=== PATIENT | male | born 1975 | race Caucasian/White ===

== ENCOUNTER 2019-12-10 09:31 | Emergency (ER) | payer BC, OTHER ==
[~2019-12-10] VITALS: Ht 177.8 cm; Wt 72.7 kg
--- NOTE | 2019-12-10 09:45 | ED Integumentary General ---
General Stated Complaint: L FINGER LACERATION History of Present Illness Date Seen by Provider: Dec 10, 2019 Time Seen by Provider: 09:44 Initial Comments 44-year-old male presents following a reptile bite by a ana luisa hernández. Patient reports that recently obtained a Reggie and he wanted to handle it prior to his children handle it. That it bit him on the distal aspect of left index finger. He has 2 small lacerations that the nail bed but not in the nailbed. There is some mild bleeding. He is not up-to-date on his tetanus. He reports no other injuries. Allergies and Home Medications Allergies Coded Allergies: shellfish derived (Verified Allergy, Unknown, 10/17/16) Home Medications No Active Prescriptions or Reported Meds Patient Home Medication List Home Medication List Reviewed: Yes Review of Systems Review of Systems Constitutional: no symptoms reported Gastrointestinal: no symptoms reported Skin: see HPI Past Lvjppjp-Jlfdlv-Izydct Hx Past Med/Social Hx: Reviewed Nursing Past Med/Soc Hx Patient Social History Recent Foreign Travel: No Contact w/Someone Who Travel: No Recent Hopitalizations: No Immunizations Up To Date Tetanus Booster (TDap): Less than 5yrs Seasonal Allergies Seasonal Allergies: Yes Past Medical History Reproductive Disorders: No Sexually Transmitted Disease: No Physical Exam Vital Signs Capillary Refill : General Appearance: WD/WN, no apparent distress Cardiovascular: normal peripheral pulses, regular rate, rhythm Respiratory: chest non-tender, lungs clear Extremities: normal range of motion, non-tender Skin: other (2 very small lacerations on each side of the nailbed on the left index finger. They're nonsuturable.) Procedures/Interventions Suture Size: 5-0 Progress/Results/Core Measures Results/Orders My Orders Orders - LIMON,GRIS L DO Dipht,Pertuss(Acell),Tet Adult (Boostrix (12/10/19 10:00) Progress Progress Note : Time: 09:53 Progress Note Patient's lacerations are minimal and did not require sutures. However we will place Steri-Strips over them. Due to the risk of infection we will not use skin adhesive. He will also be placed on Augmentin prophylactically due to the nature of the bite. Patient should follow-up with her primary care provider as needed. He should keep the wound clean with warm soapy water. Patient is stable and will be discharged home. Departure Impression Primary Impression: Reptile bites Qualified Codes: W59.81XA - Bitten by other nonvenomous reptiles, initial encounter Disposition: 01 HOME, SELF-CARE Condition: Stable Departure-Patient Inst. Referrals: NO,LOCAL PHYSICIAN (PCP/Family) Primary Care Physician Patient Instructions: Animal Bites (DC) Scripts Amoxicillin/Potassium Clav (Augmentin 875-125 Tablet) 1 Each Tablet 1 EACH PO BID, #14 TAB 0 Refills Prov: GRSI LIMON DO 12/10/19 GRIS LIMON DO Dec 10, 2019 09:45
[2019-12-10] MEDS ORDERED: AMOX-358 PO (09:57)
[2019-12-10] MEDS ORDERED: TETANUS,DIPTH,PERTUSS P/F (BOOSTRIX) 0.5 ML VIAL IM ONE (10:00)
[2019-12-10 10:10] VITALS: BP 130/84
== END 2019-12-10 10:10 | disposition home or self-care (01) ==
LOC: EDUNIT# 09:31 → ER 09:32
DX: S61.251A Open bite of left index finger without damage to nail, initial encounter (principal); S61.211A Laceration without foreign body of left index finger without damage to nail, initial encounter; Z23 Encounter for immunization; W59.81XA Bitten by other nonvenomous reptiles, initial encounter
CPT/HCPCS: 12011; 90471; 90715

== ENCOUNTER 2021-05-19 20:03 | Emergency (ER) | payer BC ==
[~2021-05-19] VITALS: Ht 180.3 cm; Wt 81.6 kg
[~2021-05-19 20:03] MED LIST: AMOX-358 PO
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
[2021-05-19 21:08] VITALS: BP 119/92
--- NOTE | 2021-05-19 21:22 | Diagnostic Imaging Report ---
INDICATION: Pain, fell down stairs EXAMINATION: Right forearm 05/19/2021 2 views of the forearm FINDINGS: There is a lucency along the distal pole of the scaphoid, correlate for point tenderness. Dedicated wrist radiographs would be useful. The remaining osseous structures intact. No dislocations. IMPRESSION: 1. Questionable fracture of the scaphoid versus positional findings. Dedicated wrist radiographs could provide better characterization. Dictated by: Dictated on workstation # [id number]
== END 2021-05-19 21:08 | disposition home or self-care (01) ==
LOC: EDUNIT# 20:03 → ER 20:04
DX: S50.11XA Contusion of right forearm, initial encounter (principal); W10.8XXA Fall (on) (from) other stairs and steps, initial encounter
CPT/HCPCS: 73090

== ENCOUNTER 2021-07-06 13:59 | Emergency (ER) | payer BC ==
[~2021-07-06] VITALS: Ht 182 cm; Wt 81.6 kg
[2021-07-06] MEDS ORDERED: ACETAMINOPHEN 500 MG TAB (TYLENOL) PO ONE (14:30)
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
[2021-07-06] MEDS ORDERED: ACHD5005 PO (15:40)
[2021-07-06 15:54] VITALS: BP 123/92
== END 2021-07-06 15:54 | disposition home or self-care (01) ==
LOC: EDUNIT# 13:59 → ER 14:02
DX: S02.32XA Fracture of orbital floor, left side, initial encounter for closed fracture (principal); S01.112A Laceration without foreign body of left eyelid and periocular area, initial encounter; V18.0XXA Pedal cycle driver injured in noncollision transport accident in nontraffic accident, initial encounter
CPT/HCPCS: 70450; 70486

== ENCOUNTER 2021-07-12 05:29 | Outpatient (RCR) | payer BC ==
[~2021-07-12] VITALS: Ht 177 cm; Wt 81.6 kg
[~2021-07-12 05:29] MED LIST changes: +ACHD5005 PO
== END 2021-07-12 10:22 | disposition home or self-care (01) ==
LOC: PREOP 05:29
PROVIDERS: ATTEND Specialist
DX: Z01.818 Encounter for other preprocedural examination (principal); S02.40FA Zygomatic fracture, left side, initial encounter for closed fracture; X58.XXXA Exposure to other specified factors, initial encounter; Z20.822 Contact with and (suspected) exposure to COVID-19
CPT/HCPCS: 87635

== ENCOUNTER 2021-07-14 12:25 | Day surgery (SDC) | payer BC ==
[~2021-07-14] VITALS: Ht 177 cm; Wt 81.6 kg
[2021-07-14] VITALS (12 sets, daily range): BP systolic 110–140; BP diastolic 78–98
[~2021-07-14 12:25] MED LIST changes: +ceFAZolin 2 GM IV Premixed 50 ML IV ONE
[2021-07-14] MEDS ORDERED: LIDOCAINE/EPI 2% 1:100,00 (XYLOCAINE) 20 ML VIAL ONE (12:54)
[2021-07-14] MEDS ORDERED: NEO/POLY/BAC (NEOSPORIN) OINT 15 GM TUBE ONE (12:54)
[2021-07-14] MEDS: LACTATED RINGERS 1,000 ML IV PRN ×2 (13:00→15:00)
[2021-07-14] MEDS ORDERED: ceFAZolin 2 GM IV Premixed 50 ML ONE (13:23)
[2021-07-14] MEDS ORDERED: fentaNYL INJ 100 MCG/2 ML AMP ONE (13:26)
[2021-07-14] MEDS ORDERED: LIDOCAINE PF 2% 5 ML (XYLOCAINE) VIAL ONE (13:26)
[2021-07-14] MEDS ORDERED: MIDAZOLAM 2 MG/2 ML (VERSED) VIAL ONE (13:26)
[2021-07-14] MEDS ORDERED: ONDANSETRON 4 MG/2 ML (SDV) Z0FRAN ONE (13:26)
[2021-07-14] MEDS ORDERED: ROCURONIUM 10 MG/ML 5 ML SYRINGE IV ONE (13:26)
[2021-07-14] MEDS ORDERED: proPOfol 200 MG/20 ML (DIPRIVAN) VIAL IV ONE (13:26)
[2021-07-14] MEDS ORDERED: ROPIVACAINE 5MG/ML 30ML VIAL ONE (13:27)
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
[2021-07-14] MEDS ORDERED: HYDROcodone/APAP 7.5MG-325 MG/15 ML (LORTAB) UDC PO PRN (14:15)
[2021-07-14] MEDS ORDERED: GLYCOPYRROLATE 0.2 MG/ML (ROBINUL) 2 ML VIAL ONE (15:38)
[2021-07-14] MEDS ORDERED: NEOSTIGMINE 3 MG/3 ML VIAL ONE (15:38)
[2021-07-14] MEDS ORDERED: KETOROLAC 30 MG/ML VIAL ONE (15:49)
[2021-07-14] MEDS ORDERED: SEVOFLURANE (ULTANE) 15 ML INHAL SOLN ONE ×2 (15:50→16:25)
[2021-07-14] MEDS ORDERED: HYDROmorphone 2 MG/ML VIAL (DILAUDID) IV ONE (16:45)
[2021-07-14] MEDS ORDERED: ONDANSETRON 4 MG/2 ML (SDV) Z0FRAN IVP PRN (16:45)
[2021-07-14] MEDS ORDERED: HYDROmorphone 2 MG/ML VIAL (DILAUDID) ONE (16:57)
[2021-07-14] MEDS ORDERED: CEPH500T PO (17:18)
[2021-07-14] MEDS ORDERED: HYDROcodone/APAP 7.5MG-325 MG/15 ML (LORTAB) UDC ONE (17:54)
--- NOTE | 2021-07-14 19:14 | Anesthesia-General Post-Op ---
General Patient Condition Mental Status/LOC: Same as Preop Cardiovascular: Satisfactory Nausea/Vomiting: Absent Respiratory: Satisfactory Pain: Controlled Complications: Absent Post Op Complications Complications None Follow Up Care/Instructions Patient Instructions None needed. Anesthesia/Patient Condition Patient Condition Patient is doing well, no complaints, stable vital signs, no apparent adverse anesthesia problems. No complications reported per nursing. D/C home per [facility] [place] [facility] Criteria: Yes ROSETTA FALK CRNA Jul 14, 2021 19:14
[2021-07-14] MEDS ORDERED: ceFAZolin INJECTION 1,000 MG in WATER (STERILE) FOR INJECTION 10 ML IV SCH (22:00)
[2021-07-14] MEDS ORDERED: ONDA8TAB13 PO (23:51)
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
== END 2021-07-14 19:15 | disposition home or self-care (01) ==
LOC: SDC 12:25
PROVIDERS: ATTEND Specialist
DX: S02.40FA Zygomatic fracture, left side, initial encounter for closed fracture (principal); S02.32XA Fracture of orbital floor, left side, initial encounter for closed fracture; F32.9 Major depressive disorder, single episode, unspecified; V29.9XXA Motorcycle rider (driver) (passenger) injured in unspecified traffic accident, initial encounter; Z79.891 Long term (current) use of opiate analgesic; Z79.2 Long term (current) use of antibiotics; Z87.891 Personal history of nicotine dependence
CPT/HCPCS: 87081

== ENCOUNTER 2021-07-14 22:25 | Emergency (ER) | payer BC ==
[~2021-07-14] VITALS: Ht 182.9 cm; Wt 81.6 kg
[~2021-07-14 22:25] MED LIST changes: +CEPH500T PO; -ceFAZolin 2 GM IV Premixed 50 ML IV ONE
[2021-07-14] MEDS ORDERED: LACTATED RINGERS 1,000 ML IV ONE (22:45)
[2021-07-14] MEDS ORDERED: ONDANSETRON 4 MG/2 ML (SDV) Z0FRAN IVP ONE (22:45)
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
[2021-07-14 22:59] LABS: BASOPHILS % (AUTO) 0 % (0-10); EOSINOPHILS % (AUTO) 0 % (0-10); HEMATOCRIT 45 % (40-54); LYMPHOCYTES # (AUTO) 0.9 10^3/uL (1.0-4.0); LYMPHOCYTES % (AUTO) 5 % (12-44); MEAN CORPUSCULAR HEMOGLOBIN 30 pg (25-34); MEAN CORPUSCULAR HGB CONC 33 g/dL (32-36); MEAN CORPUSCULAR VOLUME 89 fL (80-99); MEAN PLATELET VOLUME 9.9 fL (9.0-12.2); MONOCYTES # (AUTO) 0.4 10^3/uL (0.0-1.0); MONOCYTES % (AUTO) 2 % (0-12); NEUTROPHILS # (AUTO) 15.8 10^3/uL (1.8-7.8); NEUTROPHILS % (AUTO) 92 % (42-75); PLATELET COUNT 217 10^3/uL (130-400); WHITE BLOOD COUNT 17.2 10^3/uL (4.3-11.0)
[2021-07-14] MEDS ORDERED: cefTRIAXone 1,000 MG in WATER (STERILE) FOR INJECTION 10 ML IV ONE (23:00)
[2021-07-14] MEDS ORDERED: fentaNYL INJ 100 MCG/2 ML AMP IVP ONE (23:00)
[2021-07-14 23:12] LABS: ALBUMIN 4.4 GM/DL (3.2-4.5); POTASSIUM 4.5 MMOL/L (3.6-5.0)
[2021-07-14 23:13] LABS: CALCIUM 9.5 MG/DL (8.5-10.1)
[2021-07-14 23:14] LABS: TOTAL PROTEIN 7.3 GM/DL (6.4-8.2)
[2021-07-14 23:16] LABS: BILIRUBIN,TOTAL 0.9 MG/DL (0.1-1.0)
[2021-07-14 23:18] LABS: CREATININE SERUM 1.11 MG/DL (0.60-1.30)
[2021-07-14 23:44] LABS: BAND NEUTROPHILS 2 %; LYMPHOCYTES % (MANUAL) 5 %; MONOCYTES % (MANUAL) 2 %; NEUTROPHILS % (MANUAL) 91 %; RBC MORPH NORMAL
[2021-07-14] MEDS ORDERED: NS IV 1000 ML 1,000 ML IV SCH (23:45)
[2021-07-14] MEDS ORDERED: RX-ONDANSETRON 4 MG ODT (ZOFRAN) PPK #4 PO STA (23:48)
[2021-07-14] MEDS ORDERED: ONDA8TAB13 PO (23:51)
[2021-07-15 00:20] VITALS: BP 126/86
== END 2021-07-15 00:20 | disposition home or self-care (01) ==
LOC: EDUNIT# 22:25 → ER 22:26
DX: S02.85XA Fracture of orbit, unspecified, initial encounter for closed fracture (principal); R11.2 Nausea with vomiting, unspecified; R73.9 Hyperglycemia, unspecified; V19.9XXA Pedal cyclist (driver) (passenger) injured in unspecified traffic accident, initial encounter
CPT/HCPCS: 36415; 80053; 85007; 85027; 96361; 96374; 96375

== ENCOUNTER 2021-07-20 15:58 | Emergency (ER) | payer BC ==
[~2021-07-20] VITALS: Ht 180 cm; Wt 81.6 kg
[~2021-07-20 15:58] MED LIST changes: +ONDA8TAB13 PO
[2021-07-20] MEDS ORDERED: LACTATED RINGERS 1,000 ML IV SCH (17:45)
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
[2021-07-20 17:48] LABS: BASOPHILS # (AUTO) 0.1 10^3/uL (0.0-0.1); BASOPHILS % (AUTO) 1 % (0-10); EOSINOPHILS # (AUTO) 0.2 10^3/uL (0.0-0.3); EOSINOPHILS % (AUTO) 2 % (0-10); HEMATOCRIT 47 % (40-54); HEMOGLOBIN 15.6 g/dL (13.3-17.7); LYMPHOCYTES # (AUTO) 1.2 10^3/uL (1.0-4.0); LYMPHOCYTES % (AUTO) 10 % (12-44); MEAN CORPUSCULAR HEMOGLOBIN 29 pg (25-34); MEAN CORPUSCULAR HGB CONC 33 g/dL (32-36); MEAN CORPUSCULAR VOLUME 89 fL (80-99); MONOCYTES # (AUTO) 0.6 10^3/uL (0.0-1.0); MONOCYTES % (AUTO) 5 % (0-12); NEUTROPHILS % (AUTO) 82 % (42-75); PLATELET COUNT 274 10^3/uL (130-400); WHITE BLOOD COUNT 12.2 10^3/uL (4.3-11.0)
[2021-07-20 18:08] LABS: ALBUMIN 4.5 GM/DL (3.2-4.5); CHLORIDE 101 MMOL/L (98-107); POTASSIUM 5.3 MMOL/L (3.6-5.0); SODIUM 135 MMOL/L (135-145)
[2021-07-20 18:09] LABS: CALCIUM 9.8 MG/DL (8.5-10.1)
[2021-07-20 18:10] LABS: GLUCOSE 99 MG/DL (70-105)
[2021-07-20 18:11] LABS: TOTAL PROTEIN 7.7 GM/DL (6.4-8.2)
[2021-07-20 18:12] LABS: BILIRUBIN,TOTAL 0.8 MG/DL (0.1-1.0); CARBON DIOXIDE 27 MMOL/L (21-32)
[2021-07-20 18:14] LABS: ALKALINE PHOSPHATASE 52 U/L (40-136); CREATININE SERUM 0.96 MG/DL (0.60-1.30); GFR ESTIMATED 84
--- NOTE | 2021-07-20 18:14 | Diagnostic Imaging Report ---
INDICATION: Constipation and dyspepsia. EXAMINATION: Supine and upright views of the abdomen were obtained with single view of the chest. FINDINGS: Lungs appear clear, bilaterally. There is moderate amount of stool throughout the colon. There is rectal distention with stool as well. No free intraperitoneal gas or pneumatosis is identified. There are calcified phleboliths in the right hemipelvis. IMPRESSION: Findings are compatible with constipation. Possibility of fecal impaction at the rectum is not excluded. Dictated by: Dictated on workstation # [id number]
[2021-07-20 18:15] LABS: BUN/CREATININE RATIO 13
[2021-07-20 18:17] LABS: ALANINE AMINOTRANSFERASE 43 U/L (0-55); MAGNESIUM 2.3 MG/DL (1.6-2.4)
[2021-07-20 18:18] LABS: LIPASE 13 U/L (8-78)
[2021-07-20] MEDS ORDERED: METHYLNALTREXONE 12 MG/0.6 ML (RELISTOR) VIAL SQ ONE (18:30)
[2021-07-20] MEDS ORDERED: FLEET ENEMA ADULT 1 EA BTL PR ONE (18:30)
[2021-07-20 18:50] VITALS: BP 126/90
== END 2021-07-20 18:50 | disposition home or self-care (01) ==
LOC: EDUNIT# 15:58 → ER 16:01
DX: K59.00 Constipation, unspecified (principal)
CPT/HCPCS: 74022; 80053; 83690; 83735; 85025; 99284; G0480; 36415; 80320

== ENCOUNTER 2022-08-26 21:30 | Emergency (ER) | payer BC ==
--- NOTE | 2022-08-26 21:47 | ED Head Injury ---
General Chief Complaint: Trauma-Non Activation Stated Complaint: FALL - HIT HEAD / LAC Source: patient, family Exam Limitations: no limitations (AQUILES HAIR APRN) History of Present Illness Date Seen by Provider: Aug 26, 2022 Time Seen by Provider: 21:35 Initial Comments Patient is a 47 yo M who presents to the ED for evaluation of a head injury that occurred when he fell backwards striking his head on the concrete floor. He denies any LOC, vomiting, seizure activity since the injury occurred. He does endorse nausea and dizziness. Also states he has some cervical pain that is worse with movement of his neck. The injury occurred approximately 15-20 minutes [employer]ODUCT [employer]. No other pain or injury per patient. Occurred: just prior to arrival Severity: mild Location: occipital, parietal Method of Injury: fell Loss of Consciousness: no loss of consciousness Associated Systoms: Nausea/Vomiting (AQUILES HAIR APRN) Allergies and Home Medications Allergies Coded Allergies: almond (Verified Allergy, Unknown, 07/11/21) shellfish derived (Verified Allergy, Unknown, 07/11/21) Patient Home Medication List Home Medication List Reviewed: Yes (AQUILES HAIR APRN) Cephalexin (Cephalexin) 500 Mg Tablet, 500 MG PO QID Prescribed by: CLARK WILDE on 07/14/21 1718 Hydrocodone Bit/Acetaminophen (HYDROcodone/APAP 5 MG/325 MG TAB) 1 Tab Tab, 1 TAB PO Q6H Prescribed by: ANNA MARIE MAS on 07/06/21 1541 Ondansetron (Ondansetron Odt) 8 Mg Tab.rapdis, 8 MG PO Q4H PRN for NAUSEA/VOMITING Prescribed by: CAMACHO PAULSON on 07/14/21 2351 Review of Systems Review of Systems Constitutional: no symptoms reported Eyes: No Symptoms Reported Ears, Nose, Mouth, Throat: no symptoms reported Respiratory: no symptoms reported Cardiovascular: no symptoms reported Gastrointestinal: nausea; No vomiting Psychiatric/Neurological: Headache (AQUILES HAIR APRN) Past Wrdfjth-Sozkzl-Psgcqc Hx Patient Social History Tobacco Use?: No Use of E-Cig and/or Vaping dev: No Substance use?: No Alcohol Use?: No Pt feels they are or have been: No (AQUILES HAIR APRN) Immunizations Up To Date Tetanus Booster (TDap): More than 5yrs PED Vaccines UTD: Yes Influenza Vaccine Up-to-Date: Yes; Up-to-Date First/Initial COVID19 Vaccinat: JANUARY 2021 Second COVID19 Vaccination Emilio: JANUARY 2021 Third COVID19 Vaccination Date: 01/16 COVID19 Vaccine Timing Adjuster: JOSAFAT (AQUILES HAIR APRN) Seasonal Allergies Seasonal Allergies: Yes (AQUILES HAIR APRN) Past Medical History Surgery/Hospitalization HX: 07/14/21--SURGICAL REPAIR OF LEFT FACIAL/PERIORBITAL FRACTURES BY DR. BAIG LEFT HAND SURGERY Surgeries: Yes (Left hand RECONSTRUCTED, PT UNSURE, POSSIBLY METAL PINS IN HAND, HARDWARE) Orthopedic Respiratory: No Cardiac: Yes (when he was 13, non symptimatic) Palpitations Neurological: Yes (once every two months) Headaches /Migraines Reproductive Disorders: No Sexually Transmitted Disease: No Genitourinary: No Gastrointestinal: No Musculoskeletal: Yes (LEFT HAND FRACTURE) Arthritis, Fractures Endocrine: No HEENT: Yes (LEFT FACIAL/PERIORBTAL FRACTRURES 06/2021) Cancer: No Psychosocial: Yes (when he was a teenager) Depression Integumentary: No Blood Disorders: No (AQUILES HAIR APRN) Physical Exam Vital Signs Vital Signs - First Documented 08/26/22 21:38 Temp 36.9 Pulse 69 Resp 16 B/P (MAP) 123/87 (99) Pulse Ox 99 O2 Delivery Room Air (KHURRAM,CAMACHO K DO) Vital Signs Capillary Refill : (AQUILES HAIR APRN) Height, Weight, BMI Height: 5'11" Weight: 160lbs. oz. 72.300547jx; 25.00 BMI Method:Stated General Appearance: WD/WN, no apparent distress HEENT: PERRL/EOMI, normal ENT inspection, TMs normal, pharynx normal Neck: non-tender, full range of motion, supple, normal inspection, tender lateral, tender midline Cardiovascular: regular rate, rhythm, no edema, no gallop, no JVD, no murmur Gastrointestinal: normal bowel sounds, non tender, soft, no organomegaly, no pulsatile mass Back: normal inspection, no CVA tenderness, no vertebral tenderness Extremities: normal range of motion, non-tender, normal inspection, no pedal edema, no calf tenderness Skin: normal color, warm/dry Lymphatic: no adenopathy (AQUILES HAIR APRN) Procedures/Interventions Suture Size: 5-0 (AQUILES HAIR APRN) Progress/Results/Core Measures Results/Orders Medications Given in ED Current Medications Medications Dose Ordered Sig/Prashant Route Start Time Stop Time Status Last Admin Dose Admin Ibuprofen 600 mg ONCE ONCE PO 08/26/22 22:00 08/26/22 22:01 DC 08/26/22 22:12 600 MG (CAMACHO PAULSON DO) Vital Signs/I&O 08/26/22 08/26/22 21:38 22:27 Temp 36.9 Pulse 69 61 Resp 16 18 B/P (MAP) 123/87 (99) 103/64 Pulse Ox 99 97 O2 Delivery Room Air Room Air (CAMACHO PAULSON DO) Progress Progress Note : Progress Note Patient is nontoxic and well hydrated on exam. No focal neurologic deficits noted on exam. Right parieto-occipital scalp contusion noted without underlying crepitus or stepoff. Overlying superficial abrasion noted. Midline and left lateral cervical TTP noted. No provocation of radicular symptoms with movement of the neck. CT of the head/c-spine acutely negative. Will d/c home with recs for supportive care and follow-up with PCP as needed. Return precautions for urgent symptomology discussed. Patient verbalized understanding. (AQUILES HAIR APRN) Departure Impression Primary Impression: Scalp contusion Qualified Codes: S00.03XA - Contusion of scalp, initial encounter Additional Impression: Concussion Qualified Codes: S06.0X0A - Concussion without loss of consciousness, initial encounter Disposition: HOME, SELF-CARE Condition: Stable Departure-Patient Inst. Decision time for Depature: 22:20 (AQUILES HAIR APRN) Referrals: NO,LOCAL PHYSICIAN (PCP/Family) Primary Care Physician Patient Instructions: Concussion, Adult (DC), Contusion (DC) ATTENDING PHYSICIAN NOTE: I WAS PHYSICALLY PRESENT ER PHYSICIAN, BUT I WAS NOT INVOLVED IN ANY DECISION MAKING OR ANY CARE OF THIS PATIENT, AND I AM NOT COLLABORATING PHYSICIAN. (CAMACHO PAULSON DO) AQUILES HAIR APRN Aug 26, 2022 21:47 CAMACHO PAULSON DO Aug 26, 2022 23:41
[2022-08-26] MEDS ORDERED: IBUPROFEN 600 MG (MOTRIN) TAB PO ONE (22:00)
--- NOTE | 2022-08-26 22:14 | Diagnostic Imaging Report ---
PROCEDURE: CT head and CT cervical spine without contrast. TECHNIQUE: Multiple contiguous axial images were obtained through the brain and cervical spine without the use of intravenous contrast. Sagittal and coronal reformations through the cervical spine were then performed. Auto Exposure Controls were utilized during the CT exam to meet ALARA standards for radiation dose reduction. INDICATION: Trauma. Fall. Head injury. COMPARISON: CT head without contrast 07/06/2021. FINDINGS: CT HEAD: Scalp contusion overlying the right parietal convexity. No fracture. No intracranial hemorrhage, mass effect, hydrocephalus or extra-axial fluid collection. No CT evidence of a territorial infarction. Mucosal thickening in the partially visualized left maxillary sinus. The mastoids are clear. CT CERVICAL SPINE: Normal alignment. Vertebral body heights are preserved. No fracture. Mild spondylotic changes are greatest at C5-C6. Paravertebral soft tissues are unremarkable. Lung apices are clear. IMPRESSION: 1. Small scalp contusion overlying the right parietal convexity. No fracture. 2. No acute intracranial or cervical spine CT finding. Dictated by: Dictated on workstation # [id number]
[2022-08-26 22:27] VITALS: BP 103/64
== END 2022-08-26 22:38 | disposition home or self-care (01) ==
LOC: EDUNIT# 21:30 → ER 21:32
DX: S06.0X0A Concussion without loss of consciousness, initial encounter (principal); S00.03XA Contusion of scalp, initial encounter; M54.2 Cervicalgia; W18.30XA Fall on same level, unspecified, initial encounter; W22.8XXA Striking against or struck by other objects, initial encounter
CPT/HCPCS: 70450; 72125